=== PATIENT | male | born 1955 | race American Indian/Alaskan Native ===

== ENCOUNTER 2019-03-13 09:50 | Outpatient (CLI) | payer MEDICARE ==
--- NOTE | 2019-03-13 11:45 | Cat Scan Report ---
CT CHEST WITHOUT CONTRAST INDICATION / CLINICAL INFORMATION: D86.9)Sarcoidosis, unspecified/. TECHNIQUE: Axial CT images were obtained through the chest without contrast. Sagittal and coronal reformatted im ages. All CT scans at this location are performed using CT dose reduction for ALARA by means of autom ated exposure control. COMPARISON: None available. FINDINGS: HEART: Mild cardiomegaly. Small pericardial effusion. Pacemaker device is in position. THORACIC AORTA: The thoracic aorta is normal caliber. Minimal calcific plaques are noted in the aorti c arch. MEDIASTINUM and TAMIKO: The thyroid gland, tracheobronchial tree and esophagus are unremarkable. There are scattered borderline paratracheal and bilateral hilar lymph nodes with partial calcifications. LUNGS: The lungs are well aerated. 5 mm calcified granulomas are noted in the posterior right upper l obe and anterior left lower lobe. 5 mm noncalcified nodule is noted in the lateral right lower lobe. No evidence for parenchymal or interstitial lung disease. No findings suggestive of sarcoidosis in th e pulmonary parenchyma. PLEURA: Small bilateral layering pleural effusions measuring up to 1 cm in thickness. No pneumothorax . SKELETAL SYSTEM: No significant abnormality. UPPER ABDOMEN: No significant abnormality. ADDITIONAL FINDINGS: None. IMPRESSION: Mild cardiomegaly, small pericardial effusion and small lateral pleural effusions. There are partially calcified lymph nodes in the paratracheal chain and bilateral hilar chains which could be related to sarcoidosis or chronic granulomatous disease. No pulmonary parenchymal findings of sarcoidosis. Signer Name: Taye Smallwood Jr, MD Signed: 03/13/2019 11:41 AM Workstation Name: [id number]
== END 2019-03-13 09:51 | disposition home or self-care (01) ==
LOC: CT 09:50
PROVIDERS: ATTEND Family Medicine
DX: D86.9 Sarcoidosis, unspecified (principal); I27.20 Pulmonary hypertension, unspecified; R91.1 Solitary pulmonary nodule
CPT/HCPCS: 71250